=== PATIENT | female | born 1990 | race Two or more races ===

== ENCOUNTER → 2020-07-13 17:00 | Outpatient (CLI) | payer OTHER | END | disposition home or self-care (01) | LOC: PPH VACUNA 17:00 | DX: Z23 Encounter for immunization (principal) ==

== ENCOUNTER 2024-12-29 18:04 | Emergency (ER) | payer OTHER ==
[~2024-12-29] VITALS: Ht 162.6 cm; Wt 72.6 kg
[2024-12-29 21:08] LABS: BASO % 0.5 % (0.1-1.2); EOS # 0.33 (0.04-0.54); EOS % 2.5 % (0.7-7.0); LYMPH # 2.60 (1.18-3.74); LYMPH % 19.9 % (19.3-53.1); MEAN PLATELET VOLUME 10.20 fl (9.4-12.4); MONO # 0.79 (0.24-0.82); MONO % 6.0 % (4.7-12.5); NEUT # 9.25 (1.56-6.13); NEUT % 70.8 % (34.0-71.1); RED CELL DISTRIBUTION WIDTH 17.9 % (11.6-14.4)
== END 2024-12-30 02:20 | disposition home or self-care (01) ==
LOC: ER 18:05
PROVIDERS: Preventive Medicine Public Health & General Preventive Medicine
DX: O20.9 Hemorrhage in early pregnancy, unspecified (principal); Z3A.01 Less than 8 weeks gestation of pregnancy